=== PATIENT | male | born 1975 ===

== ENCOUNTER 2016-09-12 06:03 | Observation (INO) | payer OTHER ==
[2016-09-12 06:03] VITALS: BMI 31.9
[2016-09-12 06:31] VITALS: RESP 18
--- NOTE | 2016-09-12 06:38 | ED PDOC ---
Upper Extremity Pain/Injury Time Seen by Provider: 09/12/16 06:25 Chief Complaint (Nursing): Upper Extremity Problem/Injury Chief Complaint (Provider): REESEE injury History Per: Patient History/Exam Limitations: no limitations Current Symptoms Are (Timing): Still Present Severity: Mild Additional Complaint(s): Froylan Espinoza is a 41 y/o male presenting to the ER on 09/12/2016 with worsening pain from an upper extremity injury two weeks ago. at the time of injury pt saw dr ferrara and was arm casted by him. Patient states pain cannot be controlled despite usage of Tylenol. Patient offers no other medical complaints at this time. Past Medical History Reviewed: Historical Data, Nursing Documentation, Vital Signs Vital Signs: Last Vital Signs Temp 98.2 F 09/12/16 06:26 Pulse 78 09/12/16 06:26 Resp 18 09/12/16 06:26 BP 132/92 H 09/12/16 06:26 Pulse Ox 100 09/12/16 06:26 - Medical History PMH: No Chronic Diseases - Surgical History Surgical History: No Surg Hx - Family History Family History: States: Unknown Family Hx - Social History Current smoker - smoking cessation education provided: No Alcohol: Occasional Drugs: Denies - Home Medications Home Medications: Ambulatory Orders Medication Instructions Recorded Methocarbamol [Robaxin] 1 mg PO Q6 PRN 09/12/16 oxyCODONE/Acetaminophen [Percocet 1 mg PO Q4 PRN 09/12/16 5/325 mg Tab] - Allergies Allergies/Adverse Reactions: Allergies Allergy/AdvReac Type Severity Reaction Status Date / Time No Known Allergies Allergy Verified 09/12/16 07:58 Review of Systems ROS Statement: Except As Marked, All Systems Reviewed And Found Negative Constitutional: Negative for: Fever Musculoskeletal: Positive for: Arm Pain (left arm) Neurological: Negative for: Weakness, Numbness Physical Exam - Reviewed Nursing Documentation Reviewed: Yes Vital Signs Reviewed: Yes - Physical Exam Appears: Positive for: Non-toxic, No Acute Distress Cardiovascular/Chest: Positive for: Regular Rate, Rhythm Respiratory: Positive for: Normal Breath Sounds Extremity: Positive for: Other ( cast applied on left arm . neurovascular intact. hand warm. normal radial pulse. and cap refill less than 2 s.) Neurologic/Psych: Positive for: Alert, Oriented - Laboratory Results Result Diagrams: 09/12/16 06:50 09/12/16 06:50 - ECG O2 Sat by Pulse Oximetry: 100 (RA) Pulse Ox Interpretation: Normal Medical Decision Making Medical Decision Makin:34 Initial Impression- LUE injury Initial Plan- * EKG * CMP * CBC w/ differential * PT * CXR * Urine C&S * UA 6:55 Dr. Ferrara was called twice and never called back. 07:00 Signing pt out to Dr. Colton MD. Pending labs, imaging, and re-eval. Documented by Dian Segura, acting as a scribe for Teto Guzman MD. All medical record entries made by the Scribe were at my direction and personally dictated by me. I have reviewed the chart and agree that the record accurately reflects my personal performance of the history, physical exam, medical decision making, and the department course for this patient. I have also personally directed, reviewed, and agree with the discharge instructions and disposition. Disposition - Clinical Impression Clinical Impression: Wrist fracture - Patient ED Disposition Is Patient to be Admitted: Transfer of Care - Disposition Disposition: Transfer of Care Disposition Time: 07:00 Condition: FAIR Patient Signed Over To: Aakash Segura
--- NOTE | 2016-09-12 07:16 | CARD ---
APPROVED REPORT EKG Measurement Heart [id number] <Conclusion> Normal sinus rhythm Normal ECG
--- NOTE | 2016-09-12 07:17 | ED PDOC ---
- ECG O2 Sat by Pulse Oximetry: 100 (RA) Medical Decision Making Medical Decision Makin:00 Patient signed out to me by Dr. Guzman. Pending call back from Dr. Rios. [address] Rios. Pt. known to him. Has ulnar and radial fx. Will need further eval and possible surgery. Will admit to his service. Disposition - Clinical Impression Clinical Impression: Fracture of wrist - POA Present On Arrival: Falls Or Trauma - Disposition Disposition: Hospitalized as Observation Patient Disposition Time: 08:14 Condition: FAIR
[2016-09-12 08:11] LABS: RBC URINE 1 /hpf (0-3); URINE BILIRUBIN NEGATIVE (NEGATIVE); URINE BLOOD NEGATIVE (NEGATIVE); URINE COLOR YELLOW (YELLOW); URINE GLUCOSE (UA) NEG (Normal); URINE KETONE NEGATIVE (NEGATIVE); URINE LEUKOCYTE ESTERASE NEG Leu/uL (Negative); URINE PROTEIN >=500 mg/dL (NEGATIVE); URINE UROBILINOGEN 0.2-1.0 mg/dL (0.2-1.0); WBC URINE 1 /hpf (0-5)
[2016-09-12 08:20] LABS: BASO # 0.1 K/uL (0.0-0.2); BASO % 0.9 % (0.0-2.0); HEMATOCRIT 44.8 % (35.0-51.0); LYMPH # 1.9 K/uL (1.0-4.3); LYMPH % 22.5 % (20.0-40.0); MEAN CELL VOLUME 83.9 fl (80.0-94.0); MEAN CORPUSCULAR HEMOGLOBIN 28.5 pg (27.0-31.0); MEAN CORPUSCULAR HGB CONC 33.9 g/dL (33.0-37.0); MEAN PLATELET VOLUME 8.4 fl (7.2-11.7); MONO # 0.7 K/uL (0.0-0.8); MONO % 7.9 % (0.0-10.0); NEUT % 57.7 % (50.0-75.0); NRBC % 0.2 % (0.0-0.0); RED CELL DISTRIBUTION WIDTH 13.8 % (11.5-14.5); WHITE BLOOD COUNT 8.6 K/uL (4.8-10.8)
[2016-09-12 08:28] LABS: ALB/GLOB RATIO 1.1 (1.0-2.1); ALKALINE PHOSPHATASE 119 U/L (38-126); ALT/SGPT 40 U/L (21-72); AST/SGOT 30 U/L (17-59); BILIRUBIN,TOTAL 0.5 mg/dl (0.2-1.3); BLOOD UREA NITROGEN 20 mg/dl (9-20); CALCIUM 9.2 mg/dL (8.4-10.2); CARBON DIOXIDE 25 mmol/L (22-30); CHLORIDE 101 mmol/L (98-107); GFR AFRICAN-AMERICAN > 60; GLUCOSE,RANDOM 124 mg/dL (75-110); POTASSIUM 3.7 MMOL/L (3.6-5.0); SODIUM 143 mmol/l (132-148); TOTAL PROTEIN 7.7 G/DL (6.3-8.2)
[2016-09-12] MEDS ORDERED: Propofol 10 mg/ml Inj (20 ML) ONE (13:10)
[2016-09-12] MEDS ORDERED: Midazolam 2 MG/2 ML VIAL ONE (13:10)
[2016-09-12] MEDS ORDERED: Sevoflurane - Inhalation Anesthetic Liq (250 ml) ONE (13:20)
--- NOTE | 2016-09-12 13:59 | RAD ---
HISTORY: arm pain COMPARISON: None available. TECHNIQUE: Chest, one view. FINDINGS: Examination limited by habitus and hypoinflation. LUNGS: No focal consolidation. Please note that chest x-ray has limited sensitivity for the detection of pulmonary masses. PLEURA: No significant pleural effusion identified. No definite pneumothorax . CARDIOVASCULAR: The cardiomediastinal silhouette appears within normal limits of size. OSSEOUS STRUCTURES: No acute osseous abnormality identified. VISUALIZED UPPER ABDOMEN: Unremarkable. OTHER FINDINGS: None. IMPRESSION: No focal consolidation, significant pleural effusion, or definite pneumothorax identified.
[2016-09-12] MEDS ORDERED: Lactated Ringer's 1,000 ML IV ONE (15:10)
[2016-09-12] MEDS ORDERED: Neostigmine Methylsulfate 3mg/3ml Syringe IV ONE (15:51)
[2016-09-12] MEDS ORDERED: HYDROmorphone 0.5 mg/0.5 ml ISec IVP PRN (16:35)
[2016-09-12] MEDS: HYDROmorphone 0.5 mg/0.5 ml ISec IVP PRN ×5 (16:37→17:50)
[2016-09-12] MEDS ORDERED: Lactated Ringer's 1,000 ML IV SCH (16:45)
[2016-09-12] MEDS ORDERED: Oxycodone/Acetaminophen 5/325 mg Tab PO PRN (17:03)
--- NOTE | 2016-09-12 17:07 | PCM.SURG1 ---
Surgeon's Initial Post Op Note - Surgeon's Notes Surgeon: Dr. Essence Rios Microfilming Document Preparer: Jennifer Dickson PA-C Type of Anesthesia: General Endo Anesthesia Administered By: Dr. Singletary/Dr. Busch Pre-Operative Diagnosis: Left Intraarticular Displaced Comminuted Distal Radius Fracture Operative Findings: see operative note Post-Operative Diagnosis: same Operation Performed: Left Open Reduction Internal Fixation of a Left Intraarticular Displaced Comminuted Distal Radius Fracture with a Synthes Volar Plate Specimen/Specimens Removed: none Estimated Blood Loss: EBL {In ML}: 10 Drains Used: No Drains Post-Op Condition: Good Date of Surgery/Procedure: 09/12/16 Time of Surgery/Procedure: 02:25
[2016-09-12 19:22] VITALS: TEMP 98
[2016-09-12 19:53] VITALS: BP 151/84; PULSE 92
--- NOTE | 2016-09-12 20:22 | OP ---
PROCEDURE DATE: 09/12/2016 ATTENDING PHYSICIAN: Essence Rios MD WAREHOUSE EXAMINER: JEROME Barney PREOPERATIVE DIAGNOSIS: Left displaced intraarticular distal radius fracture. POSTOPERATIVE DIAGNOSIS: Left displaced intraarticular distal radius fracture. PROCEDURE: Open reduction and internal fixation of left distal radius fracture. IMPLANTS: Synthes distal 3-hole plate. ANESTHESIA TYPE: General. ESTIMATED BLOOD LOSS: 10 mL COMPLICATIONS: None. HISTORY: The patient is a 41-year-old male who had a mechanical fall, landing onto his left wrist. He was initially seen in the Emergency Room. X-rays showed a displaced intraarticular distal radius fracture and attempted reduction was performed. The patient was placed in a sugar-tong splint. The patient was seen in my office. I reviewed the patient's CT scan and x-rays which showed displaced int raarticular fracture fragments. I had a detailed discussion with the patient, offering him different treatment options, both operative and nonoperative management. After careful consideration and weig heber out his options, patient wanted to proceed with open reduction internal fixation. I reviewed th e risks and benefits of the surgery with the patient in detail. The risks included, but not limited to bleeding, infection, nerve vessel damage, continued pain, stiffness, malunion, nonunion, symptomat ic hardware, need for further surgery, among others. The patient fully understood the risks and bene fits and opted to proceed with the surgery. PROCEDURE: On the day of the surgery, the patient admitted to the Emergency Room. He was brought ont o operating room table. An informed consent was signed. Once again, reviewed the risks and benefits . The patient's left arm was marked. He was brought onto operating room table. He underwent genera l anesthesia. A padded tourniquet was applied to patient's left arm. The left extremity was draped and prepped in standard sterile manner. First, a timeout was completed, confirming patient's left wrist to be the correct operative site. We utilized a distal volar approach and a 6 cm incision was marked distally. The skin was excise d using a 10 blade and interval between the FCR and the radial artery was identified. Radial artery was retracted and protected on the radial side. Skin dissection was taken down and the quadratus pron ator was identified, was excised sharply. Fracture fragment was identified. The hematoma was evacua bernice. All the soft tissue debris was removed. The fracture was provisionally reduced using a radial styloid K-wire. Once we were happy with the reduction, a Synthes 3-hole distal plate was provisional ly fixed with K wires after maintaining reduction. The reduction was confirmed using AP and lateral radiographs. First, we proceeded with a cortical screw, securing the plate to the shaft. Next, mult iple distal locking screws were placed in the distal row to secure the fragment. Two additional prox imal locking screws were placed. Final radiographs were taken, which showed adequate reduction and r estoration of length. The wound was copiously irrigated using normal saline. The deep tissue was cl osed using 3-0 Vicryl sutures and skin was closed using 3-0 nylon sutures. A sterile dressing was ap plied. The patient was placed in a sugar-tong splint. The tourniquet was deflated. There were no c omplications of surgery. Jennifer Dickson is a certified physician special event assistant who was present for the entirety of the case , as her participation was crucial in patient positioning, protection of critical neurovascular struc tures and successful completion of the surgery. Essence Rios MD cc: [id number] TT: 09/12/2016 20:20:57 roney
--- NOTE | 2016-09-13 11:09 | RAD ---
PROCEDURE: Intraoperative fluoroscopy HISTORY: WRIST LEFT COMPARISON: Not available TECHNIQUE: Intraoperative fluoroscopy was provided for ORIF left wrist. Total time of fluoroscopy was 57.6 seconds. FINDINGS: Three fluoroscopic spot films are submitted. Films are on file for review. IMPRESSION: Fluoroscopy provided.
--- NOTE | 2016-09-13 11:42 | RAD ---
PROCEDURE: Left Wrist Radiographs. HISTORY: post op dital radius ORIF with Plate/screws COMPARISON: None. FINDINGS: BONES: Bony detail obscured by overlying fiberglass cast. Status post ORIF distal radial fracture. Fracture fragments in gross anatomic alignment. Plate and screw fixation device along ventral aspect of the distal radius. Nondisplaced ulnar styloid process fracture noted. Radiocarpal articulation intact. Normal carpal alignment. JOINTS: As above SOFT TISSUES: Normal. OTHER FINDINGS: None. IMPRESSION: Status post ORIF distal radial fracture. Gross anatomic alignment achieved.
[2016-09-13 19:44] VITALS: O2SAT 100
--- NOTE | 2016-09-14 11:55 | CP.PCM.DIS ---
Provider - Provider Date of Admission: 09/12/16 07:46 Attending physician: Essence Rios MD Time Spent in preparation of Discharge (in minutes): 30 Hospital Course - Lab Results Lab Results: Micro Results 09/12/16 09:45 Urine,Clean Catch Urine Culture - Final 10-50,000 CFU/ML. MULTIPLE SPECIES. PROBABLE CONTAMINATION. Most Recent Lab Values WBC 8.6 K/uL (4.8-10.8) 09/12/16 06:50 RBC 5.34 Mil/uL (4.40-5.90) 09/12/16 06:50 Hgb 15.2 g/dL (12.0-18.0) 09/12/16 06:50 Hct 44.8 % (35.0-51.0) 09/12/16 06:50 MCV 83.9 fl (80.0-94.0) 09/12/16 06:50 MCH 28.5 pg (27.0-31.0) 09/12/16 06:50 MCHC 33.9 g/dL (33.0-37.0) 09/12/16 06:50 RDW 13.8 % (11.5-14.5) 09/12/16 06:50 Plt Count 286 K/uL (130-400) 09/12/16 06:50 MPV 8.4 fl (7.2-11.7) 09/12/16 06:50 Neut % (Auto) 57.7 % (50.0-75.0) 09/12/16 06:50 Lymph % (Auto) 22.5 % (20.0-40.0) 09/12/16 06:50 Gove % (Auto) 7.9 % (0.0-10.0) 09/12/16 06:50 Eos % (Auto) 11.0 % (0.0-4.0) H 09/12/16 06:50 Baso % (Auto) 0.9 % (0.0-2.0) 09/12/16 06:50 Neut # 5.0 K/uL (1.8-7.0) 09/12/16 06:50 Lymph # 1.9 K/uL (1.0-4.3) 09/12/16 06:50 Gove # 0.7 K/uL (0.0-0.8) 09/12/16 06:50 Eos # 1.0 K/uL (0.0-0.7) H 09/12/16 06:50 Baso # 0.1 K/uL (0.0-0.2) 09/12/16 06:50 PT 10.4 SECONDS (9.6-11.2) 09/12/16 06:50 INR 1.00 (0.92-1.08) 09/12/16 06:50 Sodium 143 mmol/l (132-148) 09/12/16 06:50 Potassium 3.7 MMOL/L (3.6-5.0) 09/12/16 06:50 Chloride 101 mmol/L (98-107) 09/12/16 06:50 Carbon Dioxide 25 mmol/L (22-30) 09/12/16 06:50 Anion Gap 21 (10-20) H 09/12/16 06:50 BUN 20 mg/dl (9-20) 09/12/16 06:50 Creatinine 0.8 mg/dL (0.8-1.5) 09/12/16 06:50 Est GFR ( Amer) > 60 09/12/16 06:50 Est GFR (Non-Af Amer) > 60 09/12/16 06:50 Random Glucose 124 mg/dL (75-110) H 09/12/16 06:50 Calcium 9.2 mg/dL (8.4-10.2) 09/12/16 06:50 Total Bilirubin 0.5 mg/dl (0.2-1.3) 09/12/16 06:50 AST 30 U/L (17-59) 09/12/16 06:50 ALT 40 U/L (21-72) 09/12/16 06:50 Alkaline Phosphatase 119 U/L (38-126) 09/12/16 06:50 Total Protein 7.7 G/DL (6.3-8.2) 09/12/16 06:50 Albumin 4.0 g/dL (3.5-5.0) 09/12/16 06:50 Globulin 3.7 gm/dL (2.2-3.9) 09/12/16 06:50 Albumin/Globulin Ratio 1.1 (1.0-2.1) 09/12/16 06:50 Urine Color Yellow (YELLOW) 09/12/16 07:30 Urine Clarity Clear (Clear) 09/12/16 07:30 Urine pH 6.0 (5.0-8.0) 09/12/16 07:30 Ur Specific [place] 1.025 (1.003-1.030) 09/12/16 07:30 Urine Protein >=500 mg/dL (NEGATIVE) 09/12/16 07:30 Urine Glucose (UA) Neg mg/dL (Normal) 09/12/16 07:30 Urine Ketones Negative mg/dL (NEGATIVE) 09/12/16 07:30 Urine Blood Negative (NEGATIVE) 09/12/16 07:30 Urine Nitrate Negative (NEGATIVE) 09/12/16 07:30 Urine Bilirubin Negative (NEGATIVE) 09/12/16 07:30 Urine Urobilinogen 0.2-1.0 mg/dL (0.2-1.0) 09/12/16 07:30 Ur Leukocyte Esterase Neg [place]/uL (Negative) 09/12/16 07:30 Urine RBC (Auto) 1 /hpf (0-3) 09/12/16 07:30 Urine Microscopic WBC 1 /hpf (0-5) 09/12/16 07:30 Discharge Plan - Follow Up Plan Condition: FAIR Disposition: HOME/ ROUTINE Patient education suggested?: Yes Additional Instructions: pt s/p Left O.R.I.F of an intraarticular distal radius fx with a synthes volar plate,wound C/D/I,LULisa NVI,pain controlled with PO pain meds,pt given pain med script,wound care instructions,follow up appt date and rehab instructions,NWB LUE,stable for d/c home
== END 2016-09-12 20:00 | disposition home or self-care (01) ==
LOC: EDBD 06:03 → H.ER 06:03 → H.ERHOLD 07:46 → INTOOBSV 07:46
PROVIDERS: ADMIT Orthopaedic Surgery; ATTEND Orthopaedic Surgery
DX: S52.572A Other intraarticular fracture of lower end of left radius, initial encounter for closed fracture (principal); W18.30XA Fall on same level, unspecified, initial encounter; Y93.9 Activity, unspecified; Y92.9 Unspecified place or not applicable